=== PATIENT | male | born 1950 | race Caucasian/White ===

== ENCOUNTER 2021-08-27 15:57 | Inpatient (IN) ==
[2021-08-27 17:32] LABS: ABS Basophils 0.1 10^3/ul (0-0.2); ABS Eosinophils 0.2 10^3/ul (0-0.6); ABS Monocytes 0.9 10^3/ul (0-0.8); ABS Neutrophils 7.8 10^3/ul (1.5-7.7); Eosinophil % 1.6 %; Hematocrit 43 % (42-52); Hemoglobin 14.7 g/dL (14.0-18.0); Lymphocyte % 18.5 %; Mean Corpuscular HGB Conc 34 g/dL (31-36); Mean Corpuscular Hemoglobin 32 pg (27-31); Mean Corpuscular Volume 93 fL (80-94); Nucleated Red Blood Cells % 0.2; Platelet Count 318 10^3/uL (150-450); Red Blood Count 4.66 10^6 /uL (4.18-5.48); Red Cell Distribution Width 15 % (10-15)
[2021-08-27 17:44] LABS: Troponin I 0.01 ng/mL (<0.03)
[2021-08-27 17:58] LABS: Albumin 4.2 g/dL (3.2-5.2); Albumin/Globulin Ratio 1.4 (1-3); C Reactive Protein 10.53 mg/L (<8.01); Calcium 9.8 mg/dL (8.6-10.3); Globulin 2.9 g/dL (2-4); Potassium 4.4 mmol/L (3.5-5.0); Total Bilirubin 2.2 mg/dL (0.2-1.0); Total Protein 7.1 g/dL (6.4-8.9)
[2021-08-27 18:13] LABS: Activated Partial Thrombo Time 32.1 seconds (26.0-38.0); INR 1.29 (0.86-1.15)
[2021-08-27 18:19] LABS: Magnesium 1.7 mg/dL (1.9-2.7)
[2021-08-27 18:49] LABS: Rapid COVID-19 Molecular Undetected (Undetected)
[2021-08-27] MEDS ORDERED: Furosemide 40 mg/4 ml IV VIAL IV ONE (21:01)
[2021-08-28 06:16] LABS: ABS Basophils 0.1 10^3/ul (0-0.2); ABS Eosinophils 0.1 10^3/ul (0-0.6); ABS Lymphocytes 1.9 10^3/ul (1.0-4.8); ABS Monocytes 0.9 10^3/ul (0-0.8); ABS Neutrophils 7.6 10^3/ul (1.5-7.7); Eosinophil % 1.3 %; Hematocrit 43 % (42-52); Lymphocyte % 18.1 %; Mean Corpuscular HGB Conc 35 g/dL (31-36); Mean Corpuscular Hemoglobin 32 pg (27-31); Mean Corpuscular Volume 92 fL (80-94); Mean Platelet Volume 8.8 fL (7.4-10.4); Nucleated Red Blood Cells % 0.1; Platelet Count 300 10^3/uL (150-450); Red Cell Distribution Width 15 % (10-15); White Blood Count 10.7 10^3/uL (3.5-10.8)
[2021-08-28 06:38] LABS: Magnesium 1.7 mg/dL (1.9-2.7); Potassium 4.3 mmol/L (3.5-5.0)
[2021-08-28] MEDS ORDERED: Flumazenil 0.5 mg/5 ml 0.1 MG/ML 5 ml VIAL ONE (07:46)
[2021-08-28] MEDS ORDERED: Midazolam 5 mg/5 ml VIAL 1 mg/ml 5 ml VIAL (5 mg) ONE (07:46)
[2021-08-28] MEDS ORDERED: Naloxone 0.4 mg VIAL 0.4 mg/ml 1 ml VIAL ONE (07:46)
[2021-08-28] MEDS ORDERED: fentaNYL 100 mcg/2 ml 50 MCG/ML VIAL ONE (07:46)
[2021-08-28] MEDS ORDERED: Magnesium Sulfate 2 gm BAG 2 GM/50 ML BAG IVPB ONE (07:53)
[2021-08-28 08:27] LABS: Direct Bilirubin 0.2 mg/dL (0.03-0.18); Indirect Bilirubin 2.3 mg/dL (0.3-1.0); Total Bilirubin 2.5 mg/dL (0.2-1.0)
[2021-08-28] MEDS ORDERED: Aspirin EC 81 mg TAB.EC (enteric coated) PO SCH (09:00)
[2021-08-28] MEDS: Amiodarone 400 mg TAB PO SCH ×2 (10:40→21:31)
[2021-08-29 10:32] LABS: Hematocrit 43 % (42-52); Mean Corpuscular HGB Conc 35 g/dL (31-36); Mean Corpuscular Hemoglobin 32 pg (27-31); Mean Corpuscular Volume 92 fL (80-94); Mean Platelet Volume 8.8 fL (7.4-10.4); Platelet Count 296 10^3/uL (150-450); Red Blood Count 4.67 10^6 /uL (4.18-5.48); Red Cell Distribution Width 15 % (10-15); White Blood Count 9.9 10^3/uL (3.5-10.8)
[2021-08-29 10:45] LABS: Calcium 9.9 mg/dL (8.6-10.3); Magnesium 1.9 mg/dL (1.9-2.7); Potassium 4.2 mmol/L (3.5-5.0)
[2021-08-29] MEDS ORDERED: Magnesium Sulfate IV 1GM/100ML 1 GM/100 ML BAG IV ONE (10:49)
[2021-08-29] MEDS ORDERED: Furosemide 20 mg/2 ml IV VIAL IV ONE (10:50)
[2021-08-29] MEDS: Amiodarone 400 mg TAB PO SCH (10:53)
[2021-08-29 12:42] VITALS: BP 130/86
== END 2021-08-29 15:30 | disposition home or self-care (01) | DRG 308 ==
LOC: ED 15:57 → SUATTDRO 21:04 → EDHOLD 21:04 → MEDTELE 08-28 03:02
PROVIDERS: ADMIT Internal Medicine; ATTEND Internal Medicine